=== PATIENT | male | born 1990 | race African-American/Black ===

== ENCOUNTER → 2019-12-05 08:05 | Outpatient (CLI) | payer OTHER, SELFPAY ==
--- NOTE | 2019-12-05 08:19 | DI.ECHO.S_ITS ---
Echocardiogram Report + + :Name: SAIRA BENITEZ Study Date: 12/05/2019 Height: 68 in : :[facility] Weight: 145 lb : : Gender: Male BSA: 1.8 m2 : :: 1990 Age: 29 yrs BP: 124/89 mmHg: :Reason For Study: GENERAL EXAM : :Ordering Physician: JULIETTE, : :EUN Performed By: Karen Hollins : :Referring: EUN SEGOVIA : + + Interpretation Summary The left ventricular ejection fraction is normal. Left ventricular wall motion is normal. Diastolic parameters suggest probable normal left ventricular diastolic function and normal filling pressures. The right ventricle is normal in size and function. The right ventricular systolic pressure is estimated to be at least 21 mmHg based on an estimated right atrial pressure of 3 mm Hg. -Structurally normal heart by echocardiography. Procedure: A two-dimensional transthoracic echocardiogram with color flow and Doppler was performed. The study quality was technically adequate. There is no prior echocardiogram noted for this patient. The patient was in sinus rhythm with heart rates between 66-75 bpm during the exam. Left Ventricle: The left ventricle is normal in size and wall thickness. The ejection fraction is estimated to be 60-65%. The left ventricular ejection fraction is normal. Left ventricular wall motion is normal. Diastolic parameters suggest probable normal left ventricular diastolic function and normal filling pressures. Right Ventricle: The right ventricle is normal in size and function. Atria: Both atria are normal in size. There is no Doppler evidence for an interatrial shunt. Mitral Valve: The mitral valve is normal in structure and function. There is trace mitral regurgitation. Aortic Valve: The aortic valve is trileaflet. The aortic valve opens well. There is no aortic valve stenosis. No aortic regurgitation is present. Tricuspid Valve: The tricuspid valve is normal in structure and function. The right ventricular systolic pressure is estimated to be at least 21 mmHg based on an estimated right atrial pressure of 3 mm Hg. There is mild tricuspid regurgitation. Pulmonic Valve: The pulmonic valve leaflets are thin and pliable; valve motion is normal. There is mild pulmonic regurgitation. Great Vessels: The aortic root is normal size. The dimensions of the ascending aorta are normal. The IVC is of normal diameter and collapses greater than 50% with a sniff. This suggests a low right atrial pressure of 3 mm Hg. Pericardium/ Pleura There is no pericardial effusion. There is no pleural effusion. MMode/2D Measurements & Calculations LVIDd: 5.0 cm LVOT diam: 2.2 cm LVIDs: 3.6 cm Ao root diam: 2.9 cm FS: 28.1 % asc Aorta Diam: 2.8 cm EPSS: 0.95 cm Ao Arch Diam (Prox Trans): 2.5 cm IVSd: 0.88 cm LVPWd: 1.0 cm LV vásquez. diameter/BSA (cm/m^2): 2.8 LV sys. diameter/BSA (cm/m^2): 2.0 LA A2 area: 17.5 cm2 RA long axis: 4.0 cm LA A4 area: 15.9 cm2 RA area: 11.6 cm2 LA length (vol): 4.4 cm RA vol: 28.3 ml LA vol: 53.3 ml RA : 15.9 ml/m2 LA vol index: 29.9 ml/m2 IVC diam: 1.2 cm RVD1 (basal): 3.2 cm TAPSE: 2.4 cm Doppler Measurements & Calculations Ao V2 max: 96.7 cm/sec LVOT Max Sebastian: 81.2 cm/sec Ao V2 mean: 63.0 cm/sec LV V1 max P.6 mmHg Ao max P.7 mmHg LV V1 VTI: 16.9 cm Ao mean P.8 mmHg FCO(I,D): 3.8 cm2 Ao V2 VTI: 16.9 cm FCO(V,D): 3.2 cm2 sev ratio: 1.0 FCO indexed to BSA (cm^2/m^2): 2.1 MV E max sebastian: 80.9 cm/sec TR max sebastian: 217.4 cm/sec MV A max sebastian: 76.0 cm/sec TR max P.9 mmHg MV E/A: 1.1 PA V2 max: 76.1 cm/sec Med Peak E' Sebastian: 10.0 cm/sec PA V2 mean: 48.9 cm/sec E/E' med: 8.1 PA mean P.1 mmHg Lat Peak E' Sebastian: 14.8 cm/sec PA pr(Accel): 8.8 mmHg E/E' lat: 5.5 E/e' average: 6.8 MV dec time: 0.14 sec SV(LVOT): 64.3 ml Electronically signed by: Chepe Coy M.D. on Reading Physician:12/05/2019 09:29 AM
== END ==
PROVIDERS: PCP Physician Assistant; Referring Provider Physician Assistant; Visit Provider Physician Assistant
DX: I07.1 Rheumatic tricuspid insufficiency (principal); I37.1 Nonrheumatic pulmonary valve insufficiency
CPT/HCPCS: 93306